=== PATIENT | male | born 1970 | race Hispanic/Latino ===

== ENCOUNTER 2024-04-27 11:37 | Emergency (ER) | payer BC ==
[~2024-04-27] VITALS: Ht 172.7 cm; Wt 102.1 kg
[2024-04-27 11:43] VITALS: PULSE 88; RESP 18; TEMP 98.1; O2SAT 95
[2024-04-27] MEDS ORDERED: CEPHALEXIN500 MG PO (12:09)
== END 2024-04-27 12:15 | disposition home or self-care (01) ==
LOC: FSED 11:45
DX: S60.451A Superficial foreign body of left index finger, initial encounter (principal); E11.9 Type 2 diabetes mellitus without complications
CPT/HCPCS: 99283

== ENCOUNTER 2025-02-09 11:27 | Emergency (ER) | payer BC ==
[~2025-02-09] VITALS: Ht 167.6 cm; Wt 101.3 kg
[~2025-02-09 11:27] MED LIST: CEPHALEXIN500 MG PO
[2025-02-09 11:45] VITALS: PULSE 90; RESP 16; TEMP 97.9
[2025-02-09] MEDS: DIPHTH,PERTUSS(ACELL),TET VAC 0.5 ML SYRINGE IM ONE (11:55)
[2025-02-09] MEDS ORDERED: CEPHALEXIN500 MG PO (13:16)
[2025-02-09] MEDS ORDERED: ACETAMINOPHEN-1 EAC4 PO (13:16)
[2025-02-09 14:11] VITALS: BP 119/72; PULSE 72; RESP 18; TEMP 97.7; O2SAT 97
== END 2025-02-09 14:10 | disposition home or self-care (01) ==
LOC: FSED 11:31
DX: S61.011A Laceration without foreign body of right thumb without damage to nail, initial encounter (principal); W29.8XXA Contact with other powered hand tools and household machinery, initial encounter; Y92.89 Other specified places as the place of occurrence of the external cause; E11.9 Type 2 diabetes mellitus without complications
CPT/HCPCS: 90471; 99284